=== PATIENT | female | born 1955 | race Caucasian/White ===

== ENCOUNTER 2023-09-03 06:27 | Emergency (ER) | payer OTHER, MEDICAID ==
[~2023-09-03] VITALS: Ht 157.5 cm; Wt 77.1 kg
[2023-09-03] MEDS: MAG HYDROX/AL HYDROX/SIMETH 30 ML LIQUID UDC PO ONE (07:00)
[2023-09-03] MEDS: LIDOCAINE VISCUS 2% 15 ML UDC MM ONE (07:00)
[2023-09-03] MEDS: MORPHINE SULFATE 4 MG/1 ML DISP.SYRIN IV ONE (07:00)
[2023-09-03] MEDS: IV NORMAL SALINE 1000 ML BAG IV ONE (07:00)
[2023-09-03] MEDS: ONDANSETRON 4 MG/2 ML VIAL IV ONE (07:00)
[2023-09-03] MEDS: FAMOTIDINE. 20 MG/2 ML VIAL IV ONE (07:00)
[2023-09-03 07:02] LABS: BASOPHILS % (AUTO) 0.7 % (0.0-2.0); EOSINOPHILS # (AUTO) 0.1 K/uL (0.0-0.7); HEMATOCRIT 49.4 % (31.2-41.9); HEMOGLOBIN 16.5 g/dL (10.9-14.3); LYMPHOCYTES # (AUTO) 2.3 K/uL (0.8-4.8); LYMPHOCYTES % (AUTO) 34.9 % (20.5-51.5); MEAN CORPUSCULAR HEMOGLOBIN 29.3 uug (24.7-32.8); MEAN CORPUSCULAR HGB CONC 34 g/dL (32.3-35.6); MEAN CORPUSCULAR VOLUME 87.5 fL (75.5-95.3); MONOCYTES # (AUTO) 0.6 K/uL (0.1-1.30); MONOCYTES % (AUTO) 8.9 % (0.0-11.0); NEUTROPHILS # (AUTO) 3.7 K/uL (1.8-8.9); NEUTROPHILS % (AUTO) 54.5 % (38.5-71.5); PLATELET COUNT (AUTO) 197 K/uL (179-408); RED BLOOD CELL COUNT(AUTO) 5.64 MIL/uL (3.63-4.92); WHITE BLOOD COUNT (AUTO) 6.7 K/uL (3.8-11.8)
[2023-09-03] MEDS ORDERED: MORPHINE SULFATE 4 MG/1 ML DISP.SYRIN ONE (07:04)
[2023-09-03] MEDS ORDERED: LIDOCAINE VISCUS 2% 15 ML UDC ONE (07:05)
[2023-09-03] MEDS ORDERED: FAMOTIDINE. 20 MG/2 ML VIAL IV ONE (07:05)
[2023-09-03] MEDS ORDERED: ONDANSETRON 4 MG/2 ML VIAL ONE (07:05)
[2023-09-03] MEDS ORDERED: MAG HYDROX/AL HYDROX/SIMETH 30 ML LIQUID UDC ONE (07:06)
[2023-09-03 07:16] LABS: DIFFERENTIAL COMMENT 1
[2023-09-03 08:29] LABS: ALANINE AMINOTRANSFERASE 28 U/L (14-59); ALBUMIN 4.3 g/dL (3.4-5.0); ALKALINE PHOSPHATASE 71 U/L (50-136); ASPARTATE AMINOTRANSFERASE 25 U/L (15-37); BILIRUBIN,DIRECT 0.2 mg/dL (0.0-0.2); BILIRUBIN,TOTAL 0.7 mg/dL (0.2-1.0); CALCIUM 10.8 mg/dL (8.5-10.1); CARBON DIOXIDE 26 mmol/L (21-32); CHLORIDE 103 mmol/L (98-107); CREATININE 0.9 mg/dL (0.6-1.3); ETHANOL < 3 MG/DL (0-10); GLUCOSE 156 mg/dL (74-106); SODIUM SERUM 141 mmol/L (136-145); TOTAL PROTEIN, SERUM 7.2 g/dL (6.4-8.2); UREA NITROGEN, BLOOD 13 mg/dL (7-18)
[2023-09-03] MEDS ORDERED: ONDA4TAB5 PO (08:47)
[2023-09-03] MEDS ORDERED: OMEP20TA20 PO (08:47)
[2023-09-03] MEDS ORDERED: POLY17PO4 PO (08:47)
[2023-09-03 08:57] LABS: POTASSIUM 4.1 mmol/L (3.5-5.1)
[2023-09-03 09:27] VITALS: BP 143/78; TEMP 98.3; O2SAT 97
== END 2023-09-03 09:29 | disposition home or self-care (01) ==
LOC: ER 06:31
DX: K57.90 Diverticulosis of intestine, part unspecified, without perforation or abscess without bleeding (principal); K59.00 Constipation, unspecified; R11.2 Nausea with vomiting, unspecified; R10.13 Epigastric pain; I10 Essential (primary) hypertension; J45.909 Unspecified asthma, uncomplicated; E11.9 Type 2 diabetes mellitus without complications; F41.9 Anxiety disorder, unspecified; Z98.890 Other specified postprocedural states
CPT/HCPCS: 36415; 71045; 83690; 84484; 85025; 93005; A4606; A4663; G0480; J2270; J2405; J3490